=== PATIENT | male | born 1975 ===

== ENCOUNTER 2016-05-27 18:03 | Emergency (ER) | payer OTHER ==
[2016-05-27 18:13] VITALS: BP 148/71; PULSE 108; TEMP 97.8; BMI 43.5
[2016-05-27] MEDS ORDERED: IBUPROFEN 600 MG TABLET (FP) PO ONE (18:36)
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
[2016-05-27] MEDS ORDERED: DIPHTH,PERTUSS(ACELL),TET VAC 0.5 ML VIAL IM ONE (18:37)
[2016-05-27] MEDS ORDERED: TETRACAINE 0.5% OPHTH SOLN 2 ML BOTTLE ONE ×2 (18:41→19:46)
[2016-05-27] MEDS ORDERED: FLUORESCEIN NA 1 EA STRIP ONE ×2 (18:41→19:40)
[2016-05-27] MEDS ORDERED: TETRACAINE 0.5% HCL 0.6ML DROPPER.BOTTLE OD ONE (19:39)
[2016-05-27] MEDS ORDERED: GENTAMICIN SULFATE 0.3% OPHTHALMIC (EYE DROPS) 5ML BOTTLE OD ONE (20:10)
[2016-05-27] MEDS ORDERED: GENTAMICIN SULFATE 0.3% OPHTHALMIC (EYE DROPS) 5ML BOTTLE ONE (20:13)
== END 2016-05-27 20:27 | disposition home or self-care (01) ==
LOC: JER 18:03
PROC: 3E0234Z Introduction of Serum, Toxoid and Vaccine into Muscle, Percutaneous Approach (ICD-10-PCS; principal; 2016-05-27)
PROC: 0HQQXZZ Repair Finger Nail, External Approach (ICD-10-PCS; 2016-05-27)
DX: S00.83XA Contusion of other part of head, initial encounter (principal); S61.317A Laceration without foreign body of left little finger with damage to nail, initial encounter; S05.01XA Injury of conjunctiva and corneal abrasion without foreign body, right eye, initial encounter; Y04.2XXA Assault by strike against or bumped into by another person, initial encounter; Y93.89 Activity, other specified; Y92.89 Other specified places as the place of occurrence of the external cause
CPT/HCPCS: 70450-TC; 70486-TC; 73030-TC-RT; 99284-25